=== PATIENT | male | born 1965 | race Caucasian/White ===

== ENCOUNTER 2023-01-26 20:54 | Emergency (ER) | payer BC ==
[2023-01-26] MEDS ORDERED: Acetaminophen/HYDROcodone 325-5 MG Tab PO STA (21:39)
[2023-01-26] MEDS ORDERED: Ketorolac 30 MG/ML SDV IM STA (21:46)
[2023-01-26] MEDS ORDERED: Sodium Chloride 0.9% 10 ML Syringe FLUSH PRN (22:26)
[2023-01-26] MEDS ORDERED: Morphine 4 MG/ML VIAL IVPUSH ONE (22:28)
[2023-01-26] MEDS ORDERED: Sodium Chloride 0.9% 1,000 ML IV SCH (22:30)
[2023-01-26] MEDS ORDERED: Iopamidol 755 Mg/ML 100 ML Bottle IV ONE (23:03)
[2023-01-26 23:13] LABS: ESTIMATED GFR 79 mL/min (>60)
== END 2023-01-27 00:16 | disposition home or self-care (01) ==
LOC: FB.ED 20:54
DX: K42.9 Umbilical hernia without obstruction or gangrene (principal); N30.90 Cystitis, unspecified without hematuria; N40.0 Benign prostatic hyperplasia without lower urinary tract symptoms; F17.210 Nicotine dependence, cigarettes, uncomplicated
CPT/HCPCS: 71101; 74177; 80053; 82150; 83690; 84484; 85025; 85379; 96361; 96372; 96374; 99284; A9270; J1885; J2270; J7030; Q9967

== ENCOUNTER 2023-02-22 19:54 | Emergency (ER) | payer BC ==
[2023-02-22] MEDS ORDERED: HYDROmorphone 2 MG/ML SDV IM ONE (21:17)
[2023-02-22] MEDS ORDERED: Ondansetron 4 MG/2 ML SDV IVPUSH ONE (21:17)
[2023-02-22] MEDS ORDERED: Ondansetron 4 MG Tab.DIS ONE (21:26)
[2023-02-22] MEDS ORDERED: Ondansetron 4 MG Tab.DIS PO ONE (21:26)
[2023-02-22] MEDS ORDERED: Ketorolac 30 MG/ML SDV IM ONE (22:36)
[2023-02-22] MEDS ORDERED: Levofloxacin 750 MG Tab PO ONE (23:45)
== END 2023-02-22 23:55 | disposition home or self-care (01) ==
LOC: FB.ED 19:54
DX: S22.31XG Fracture of one rib, right side, subsequent encounter for fracture with delayed healing (principal); J18.9 Pneumonia, unspecified organism; I10 Essential (primary) hypertension; Z72.0 Tobacco use; X50.0XXA Overexertion from strenuous movement or load, initial encounter
CPT/HCPCS: 71045; 96372; 99283; 99284; A9270-GY; J1170; J1885; Q0162

== ENCOUNTER 2024-01-07 06:06 | Day surgery (SDC) | payer BC ==
[2024-01-07] MEDS ORDERED: Ketamine 500 mg/10 ML MDV IV ONE (06:07)
[2024-01-07] MEDS ORDERED: Ondansetron 4 MG/2 ML SDV IVPUSH ONE (06:07)
[2024-01-07] MEDS ORDERED: Ketorolac 30 MG/ML SDV IVPUSH ONE (06:07)
[2024-01-07] MEDS ORDERED: Lactated Ringers 1,000 ML IV ONE (06:07)
[2024-01-07] MEDS ORDERED: Dexamethasone 4 MG/ML SDV IV ONE (06:07)
[2024-01-07] MEDS ORDERED: Propofol 200 MG/20 ML SDV IV ONE (06:07)
[2024-01-07] MEDS ORDERED: Midazolam 1 MG/ML 2 ML SDV IV ONE (06:07)
[2024-01-07] MEDS ORDERED: fentaNYL 100 MCG/2 ML SDV IV ONE (06:07)
[2024-01-07] MEDS ORDERED: Sodium Chloride 0.9% 10 ML Syringe FLUSH PRN (06:15)
[2024-01-07] MEDS: Lactated Ringers 1,000 ML IV SCH (07:10)
[2024-01-07] MEDS: ceFAZolin 2 GM Vial IVPUSH ONE (07:42)
[2024-01-07] MEDS: Bupivacaine 0.5% 30 ML SDV INJECT ONE (08:04)
[2024-01-07] MEDS: Lidocaine 1% with EPINEPHrine 1:100,000 20 ML MDV INJECT ONE (08:04)
== END 2024-01-07 10:03 | disposition home or self-care (01) ==
LOC: FB.SDS 06:06
PROVIDERS: ATTEND Surgery
DX: K42.0 Umbilical hernia with obstruction, without gangrene (principal); F17.210 Nicotine dependence, cigarettes, uncomplicated; Z79.899 Other long term (current) drug therapy
CPT/HCPCS: 00840; 88302; J0665; J0690; J1100; J1885; J2250; J2405; J2704; J3010; J3490; J7120